=== PATIENT | male | born 1960 | race Caucasian/White ===

== ENCOUNTER 2022-11-30 14:24 | Outpatient (CLI) | payer OTHER | END 2022-11-30 14:25 | disposition home or self-care (01) | LOC: TBSIIMAG 14:24 | PROVIDERS: ATTEND Neurological Surgery | DX: M48.56XA Collapsed vertebra, not elsewhere classified, lumbar region, initial encounter for fracture (principal) | CPT/HCPCS: 72100 ==

== ENCOUNTER 2023-01-05 14:30 | Outpatient (CLI) | payer OTHER | END 2023-01-05 14:31 | disposition home or self-care (01) | LOC: TBSIIMAG 14:30 | PROVIDERS: ATTEND Neurological Surgery | DX: M47.26 Other spondylosis with radiculopathy, lumbar region (principal); S32.011A Stable burst fracture of first lumbar vertebra, initial encounter for closed fracture | CPT/HCPCS: 72100 ==

== ENCOUNTER 2023-07-18 09:28 | Outpatient (CLI) | payer OTHER | END 2023-07-18 09:29 | disposition home or self-care (01) | LOC: SCSMRI 09:28 | PROVIDERS: ATTEND Internal Medicine | DX: C71.9 Malignant neoplasm of brain, unspecified (principal) | CPT/HCPCS: 70553 ==